=== PATIENT | male | born 1995 | race Caucasian/White ===

== ENCOUNTER 2023-08-03 08:49 | Day surgery (SDC) | payer BC ==
[~2023-08-03] VITALS: Ht 180.3 cm; Wt 73.7 kg
[2023-08-03] VITALS (7 sets, daily range): BP systolic 105–126; BP diastolic 58–77; PULSE 78–85; TEMP 97.7–98.5
[2023-08-03] MEDS ORDERED: NATURE'S B5000 IU/ML PO (09:19)
[2023-08-03] MEDS ORDERED: VITAMINC1000TA (09:19)
[2023-08-03] MEDS ORDERED: VITAMIN B COMPL1 SGL PO (09:20)
--- NOTE | 2023-08-03 10:09 | NUR ---
0858 Pt ambulatory to bay 7 with a steady gait, breathing even and unlabored. Pt is alert and oriented. Consents reviewed and signed by pt. Pt became pale and quiet with IV start. Did not lose consciousness. Cold wash cloth provided. 1st attempt aborted. IV obtained with 2nd attempt. Call light in reach. Warm blanket provided.
[2023-08-03] MEDS ORDERED: NORCO 325 MG-51 TAB PO (12:05)
--- NOTE | 2023-08-03 14:20 | NUR ---
1300 RETURNS TO ROOM 7 PER CART. AWAKE, ALERT. HOB ELEVATED 40 DEGREES. RESP UNLABORED. VITAL SIGNS OBTAINED. ABD SOFT, FLAT, INCISION X 3 SITES INTACT WITHOUT REDNESS OR DRAINAGE. REPORTS MILD DISCOMFORT. DENIES NEED FOR PAIN MED 1315 TOLERATES PO WATER WITHOUT NAUSEA 1330 TOLERATES PO JUICE AND ICE CREAM. REPORT MILD DISCOMFORT 1345 AWAKE, ALERT. CONVERSES APPROPRIATELY 1400 DISCHARGE INSTRUCTIONS REIVEWED. PATIENT VERBALIZES UNDERSTANDING. COPY PROVIDED IN DISCHARGE FOLDER 1410 SITS ON EDGE OF CART. DRESSES SELF, THEN AMBULATES TO BATHROOM WITH STANDBY ASSIST. ADMITS TO VOIDING WITHOUT DIFFICULTY
== END 2023-08-03 14:20 | disposition home or self-care (01) ==
LOC: SDCO 08:49
DX: K40.90 Unilateral inguinal hernia, without obstruction or gangrene, not specified as recurrent (principal)
CPT/HCPCS: C1781; J0690; J1100; J1885; J2175; J2250; J2371; J2405; J2704; J3010; J7120